=== PATIENT | female | born 1945 | race Caucasian/White ===

== ENCOUNTER 2017-08-07 12:02 | Emergency (ER) | payer MEDICARE, MEDICAID ==
[~2017-08-07] VITALS: Ht 157.5 cm; Wt 69.1 kg
[2017-08-07 12:03] VITALS: TEMP 98.4
[2017-08-07 12:53] LABS: BASO % 0.3 % (0.0-2.0); EOS % 0.2 % (0-4.0); GRAN # 3.2 (1.4-6.5); GRAN % 54.3 % (42.2-75.2); HEMATOCRIT 43.5 % (37.0-47.0); HEMOGLOBIN 14.6 g/dl (12.5-16.0); LYMPH # 1.9 (1.2-3.4); LYMPH % 32.9 % (20.0-51.0); MEAN CELL VOLUME 79 fl (80.0-100.0); MEAN CORPUSCULAR HEMOGLOBIN 27 pg (27.0-31.0); MEAN CORPUSCULAR HGB CONC 34 g/dl (33.0-37.0); MEAN PLATELET VOLUME 10.4 fl (7.4-10.4); MONO # 0.7 (0.1-0.6); MONO % 11.5 % (1.7-9.3); PLATELET COUNT 199 K/mm3 (130-400); RED BLOOD COUNT 5.49 M/mm3 (4.10-5.30); REDCELL DISTRIBUTION WIDTH-CV 14.6 % (11.5-14.5)
[2017-08-07 12:55] LABS: COLLECTION METHOD CLEAN CATCH
[2017-08-07 13:00] LABS: ALBUMIN 4.2 gm/dL (3.5-5.0); BILIRUBIN,TOTAL 0.6 mg/dL (0.0-1.0); CALCIUM 8.8 mg/dL (8.4-10.2); CREATININE, serum 1.37 mg/dL (0.52-1.25); POTASSIUM 3.2 mmol/L (3.4-5.0); TOTAL PROTEIN 7.1 gm/dL (6.4-8.2)
[2017-08-07] MEDS ORDERED: ULTRAM 50MG TAB50 MG PO (13:07)
[2017-08-07] MEDS ORDERED: LIPITOR20 MG PO (13:08)
[2017-08-07] MEDS ORDERED: PROTONIX 40MG T40 MG PO (13:08)
[2017-08-07] MEDS ORDERED: NAPROSYN500 MG PO (13:08)
[2017-08-07] MEDS ORDERED: CYMBALTA 60MG60 MG PO (13:09)
[2017-08-07] MEDS ORDERED: MINOXIDIL 10 PO (13:09)
[2017-08-07] MEDS ORDERED: NORVASC 10MG10 MG PO (13:10)
[2017-08-07] MEDS ORDERED: PLAVIX 75MG TAB75 MG PO (13:10)
[2017-08-07] MEDS ORDERED: BYSTOLIC10 MG PO (13:10)
[2017-08-07] MEDS ORDERED: CATAPRES0.2 MG PO (13:11)
[2017-08-07] MEDS ORDERED: NORCO 325 MG-51 TAB PO (13:11)
[2017-08-07] MEDS ORDERED: ATIVAN 1MG T1 MG/TAB PO ×2 (13:12→16:41)
[2017-08-07] MEDS ORDERED: GLUCOTROL XL2.5 MG PO (13:13)
[2017-08-07] MEDS ORDERED: COZAAR 50MG50 MG/TAB PO (13:13)
[2017-08-07 13:16] LABS: PH 5 (5-8); URINE APPEARANCE Clear; URINE BILIRUBIN Negative (NEGATIVE); URINE BLOOD Negative (NEGATIVE); URINE COLOR Yellow; URINE GLUCOSE Negative (NEGATIVE); URINE KETONE Negative (NEGATIVE); URINE LEUKOCYTE ESTERASE Negative (NEGATIVE); URINE NITRATE Negative (NEGATIVE); URINE PROTEIN(semi-quant) 1+ (NEGATIVE)
[2017-08-07 13:16] LABS: ACETAMINOPHEN < 10 ug/mL (10-30); ALCOHOL(ethanol),MEDICAL < 10 mg/dL; SALICYLATE < 1.0 mg/dL
[2017-08-07 13:24] LABS: MUCOUS Present /lpf; URINE RBC 0-2 /hpf
[2017-08-07 13:39] LABS: TSH w REFLEX 0.541 uIU/mL (0.465-4.680)
[2017-08-07 16:44] VITALS: BP 183/95; PULSE 66
== END 2017-08-07 17:08 | disposition home or self-care (01) ==
LOC: COL.ER 12:02
PROVIDERS: Emergency Medicine
DX: F43.22 Adjustment disorder with anxiety (principal); F32.9 Major depressive disorder, single episode, unspecified; I10 Essential (primary) hypertension; F17.210 Nicotine dependence, cigarettes, uncomplicated; Z86.73 Personal history of transient ischemic attack (TIA), and cerebral infarction without residual deficits; Z95.1 Presence of aortocoronary bypass graft; Z79.02 Long term (current) use of antithrombotics/antiplatelets; Z79.84 Long term (current) use of oral hypoglycemic drugs
CPT/HCPCS: J2060; J7030

== ENCOUNTER 2017-08-09 13:51 | Inpatient (IN) | payer MEDICARE, MEDICAID ==
[~2017-08-09] VITALS: Ht 157.5 cm; Wt 62.5 kg
[~2017-08-09 13:51] MED LIST: ATIVAN 1MG T1 MG/TAB PO; BYSTOLIC10 MG PO; CATAPRES0.2 MG PO; COZAAR 50MG50 MG/TAB PO; CYMBALTA 60MG60 MG PO; GLUCOTROL XL2.5 MG PO; LIPITOR20 MG PO; MINOXIDIL 10 PO; NAPROSYN500 MG PO; NORCO 325 MG-51 TAB PO; NORVASC 10MG10 MG PO; PLAVIX 75MG TAB75 MG PO; PROTONIX 40MG T40 MG PO; ULTRAM 50MG TAB50 MG PO
[2017-08-09 14:02] VITALS: BP 170/88; PULSE 53; TEMP 98.5
[2017-08-09] MEDS ORDERED: FLONASEALLERGY NS (14:03)
[2017-08-09 15:30] LABS: INR 1.1 (0.8-3.0); PROTHROMBIN TIME 12.2 SECONDS (9.7-12.8)
[2017-08-09 15:47] LABS: ALBUMIN 3.8 gm/dL (3.5-5.0); BILIRUBIN,TOTAL 0.5 mg/dL (0.0-1.0); CALCIUM 8.4 mg/dL (8.4-10.2); CREATININE, serum 1.03 mg/dL (0.52-1.25); POTASSIUM 3.3 mmol/L (3.4-5.0); TOTAL PROTEIN 6.6 gm/dL (6.4-8.2)
[2017-08-09 15:57] LABS: BASO % 0.4 % (0.0-2.0); EOS % 0.1 % (0-4.0); GRAN # 3.9 (1.4-6.5); GRAN % 56.2 % (42.2-75.2); HEMATOCRIT 41.1 % (37.0-47.0); HEMOGLOBIN 13.7 g/dl (12.5-16.0); LYMPH # 2.2 (1.2-3.4); LYMPH % 31.8 % (20.0-51.0); MEAN CELL VOLUME 81 fl (80.0-100.0); MEAN CORPUSCULAR HEMOGLOBIN 27 pg (27.0-31.0); MEAN CORPUSCULAR HGB CONC 33 g/dl (33.0-37.0); MEAN PLATELET VOLUME 10.7 fl (7.4-10.4); MONO # 0.7 (0.1-0.6); MONO % 10.1 % (1.7-9.3); PLATELET COUNT 250 K/mm3 (130-400); RED BLOOD COUNT 5.08 M/mm3 (4.10-5.30); REDCELL DISTRIBUTION WIDTH-CV 14.6 % (11.5-14.5)
[2017-08-09 16:00] LABS: MAGNESIUM 1.8 mg/dL (1.6-2.3); PHOSPHOROUS 3.9 mg/dL (2.5-4.5)
[2017-08-09 17:27] VITALS: BP 156/61; PULSE 67; TEMP 98.6
[2017-08-09 17:28] VITALS: BP 156/61; PULSE 57; TEMP 98.6
[2017-08-09 22:00] VITALS: BP 149/60; PULSE 62; TEMP 98.9
[2017-08-10] VITALS (14 sets, daily range): BP systolic 113–153; BP diastolic 57–75; PULSE 50–77; TEMP 96.4–98.8
[2017-08-10 07:01] LABS: ALBUMIN 3.4 gm/dL (3.5-5.0); BILIRUBIN,TOTAL 0.4 mg/dL (0.0-1.0); CALCIUM 8.3 mg/dL (8.4-10.2); CREATININE, serum 1.05 mg/dL (0.52-1.25); POTASSIUM 3.9 mmol/L (3.4-5.0); TOTAL PROTEIN 6.1 gm/dL (6.4-8.2)
[2017-08-11 01:27] VITALS: BP 131/54; PULSE 79; TEMP 98.5
[2017-08-11 04:53] VITALS: BP 154/63; PULSE 81; TEMP 97.5
[2017-08-11 06:59] LABS: HEMATOCRIT 38.9 % (37.0-47.0); HEMOGLOBIN 12.9 g/dl (12.5-16.0); MEAN CELL VOLUME 81 fl (80.0-100.0); MEAN CORPUSCULAR HEMOGLOBIN 27 pg (27.0-31.0); MEAN CORPUSCULAR HGB CONC 33 g/dl (33.0-37.0); PLATELET COUNT 217 K/mm3 (130-400); RED BLOOD COUNT 4.82 M/mm3 (4.10-5.30); REDCELL DISTRIBUTION WIDTH-CV 15.1 % (11.5-14.5)
[2017-08-11 07:18] LABS: ALBUMIN 3.5 gm/dL (3.5-5.0); BILIRUBIN,TOTAL 4.3 mg/dL (0.0-1.0); CREATININE, serum 1.29 mg/dL (0.52-1.25); POTASSIUM 3.4 mmol/L (3.4-5.0); TOTAL PROTEIN 6.4 gm/dL (6.4-8.2)
[2017-08-11 09:11] LABS: BAND 22 % (0-10); LYMPHOCYTE 13 % (20.0-51.0); NEUTROPHILS 64 % (42.0-75.2); PLATELET ESTIMATE NORMAL (NORMAL)
[2017-08-11 09:32] VITALS: BP 156/62; PULSE 77; TEMP 98
[2017-08-11 13:16] VITALS: BP 159/67; PULSE 80; TEMP 100.8
[2017-08-11 17:45] VITALS: BP 148/61; PULSE 66; TEMP 98.8
[2017-08-11 20:33] VITALS: BP 163/76; PULSE 64; TEMP 98.5
[2017-08-12] VITALS (13 sets, daily range): BP systolic 131–168; BP diastolic 57–72; PULSE 63–94; TEMP 98–101.4
[2017-08-12 06:32] LABS: HEMATOCRIT 37.7 % (37.0-47.0); HEMOGLOBIN 12.5 g/dl (12.5-16.0); MEAN CELL VOLUME 80 fl (80.0-100.0); MEAN CORPUSCULAR HEMOGLOBIN 27 pg (27.0-31.0); MEAN CORPUSCULAR HGB CONC 33 g/dl (33.0-37.0); MEAN PLATELET VOLUME 11.8 fl (7.4-10.4); PLATELET COUNT 200 K/mm3 (130-400); RED BLOOD COUNT 4.72 M/mm3 (4.10-5.30); REDCELL DISTRIBUTION WIDTH-CV 15.6 % (11.5-14.5)
[2017-08-12 06:56] LABS: ALBUMIN 2.8 gm/dL (3.5-5.0); BILIRUBIN,TOTAL 4.2 mg/dL (0.0-1.0); CALCIUM 7.4 mg/dL (8.4-10.2); CREATININE, serum 1.04 mg/dL (0.52-1.25); TOTAL PROTEIN 5.6 gm/dL (6.4-8.2)
[2017-08-12 06:59] LABS: POTASSIUM 2.9 mmol/L (3.4-5.0)
[2017-08-12 08:29] LABS: BAND 19 % (0-10); EOSINOPHIL 1 % (0-4); LYMPHOCYTE 7 % (20.0-51.0); METAMYELOCYTE 1 % (0-0); NEUTROPHILS 67 % (42.0-75.2); PLATELET ESTIMATE NORMAL (NORMAL)
[2017-08-13] VITALS (7 sets, daily range): BP systolic 118–139; BP diastolic 52–87; PULSE 52–60; TEMP 97–99.3
[2017-08-13 07:22] LABS: BASO % 0.2 % (0.0-2.0); GRAN # 9.7 (1.4-6.5); GRAN % 84.8 % (42.2-75.2); HEMATOCRIT 37.9 % (37.0-47.0); HEMOGLOBIN 12.5 g/dl (12.5-16.0); LYMPH # 0.8 (1.2-3.4); LYMPH % 6.9 % (20.0-51.0); MEAN CELL VOLUME 80 fl (80.0-100.0); MEAN CORPUSCULAR HEMOGLOBIN 26 pg (27.0-31.0); MEAN CORPUSCULAR HGB CONC 33 g/dl (33.0-37.0); MEAN PLATELET VOLUME 11.8 fl (7.4-10.4); MONO # 0.8 (0.1-0.6); MONO % 7.3 % (1.7-9.3); PLATELET COUNT 174 K/mm3 (130-400); RED BLOOD COUNT 4.73 M/mm3 (4.10-5.30); REDCELL DISTRIBUTION WIDTH-CV 15.9 % (11.5-14.5)
[2017-08-13 07:36] LABS: ALBUMIN 2.8 gm/dL (3.5-5.0); BILIRUBIN,TOTAL 3.4 mg/dL (0.0-1.0); CALCIUM 7.6 mg/dL (8.4-10.2); CREATININE, serum 1.06 mg/dL (0.52-1.25); POTASSIUM 3.9 mmol/L (3.4-5.0); TOTAL PROTEIN 5.8 gm/dL (6.4-8.2)
[2017-08-14 00:39] VITALS: BP 123/60; PULSE 56; TEMP 97.8
[2017-08-14 04:40] VITALS: BP 159/75; PULSE 82; TEMP 98.1
[2017-08-14 07:42] LABS: BASO % 0.2 % (0.0-2.0); GRAN # 9.4 (1.4-6.5); GRAN % 83.5 % (42.2-75.2); LYMPH % 8.6 % (20.0-51.0); MEAN CELL VOLUME 80 fl (80.0-100.0); MEAN CORPUSCULAR HGB CONC 34 g/dl (33.0-37.0); MEAN PLATELET VOLUME 12.5 fl (7.4-10.4); MONO # 0.8 (0.1-0.6); MONO % 6.7 % (1.7-9.3); PLATELET COUNT 173 K/mm3 (130-400); RED BLOOD COUNT 4.19 M/mm3 (4.10-5.30); REDCELL DISTRIBUTION WIDTH-CV 16.1 % (11.5-14.5)
[2017-08-14 07:45] LABS: HEMATOCRIT 33.3 % (37.0-47.0); HEMOGLOBIN 11.2 g/dl (12.5-16.0); MEAN CORPUSCULAR HEMOGLOBIN 27 pg (27.0-31.0)
[2017-08-14 07:51] LABS: ALBUMIN 2.7 gm/dL (3.5-5.0); BILIRUBIN,TOTAL 2.2 mg/dL (0.0-1.0); CALCIUM 7.7 mg/dL (8.4-10.2); CREATININE, serum 1.15 mg/dL (0.52-1.25); POTASSIUM 3.4 mmol/L (3.4-5.0); TOTAL PROTEIN 5.6 gm/dL (6.4-8.2)
[2017-08-14 10:42] VITALS: BP 154/69; PULSE 87; TEMP 98.3
[2017-08-14 12:33] VITALS: BP 148/61; PULSE 65
[2017-08-14 17:16] VITALS: BP 109/59; PULSE 59; TEMP 98.2
[2017-08-15 00:04] VITALS: BP 141/60; PULSE 47; TEMP 97.7
[2017-08-15 05:59] VITALS: BP 138/99; PULSE 53; TEMP 97.8
[2017-08-15 07:45] LABS: MEAN CELL VOLUME 79 fl (80.0-100.0); MEAN CORPUSCULAR HEMOGLOBIN 26 pg (27.0-31.0); MEAN CORPUSCULAR HGB CONC 34 g/dl (33.0-37.0); MEAN PLATELET VOLUME 12.4 fl (7.4-10.4); PLATELET COUNT 191 K/mm3 (130-400); RED BLOOD COUNT 4.55 M/mm3 (4.10-5.30)
[2017-08-15 07:52] LABS: ALBUMIN 3.1 gm/dL (3.5-5.0); BILIRUBIN,TOTAL 2.1 mg/dL (0.0-1.0); CALCIUM 7.9 mg/dL (8.4-10.2); CREATININE, serum 1.05 mg/dL (0.52-1.25); POTASSIUM 3.3 mmol/L (3.4-5.0); TOTAL PROTEIN 6.1 gm/dL (6.4-8.2)
[2017-08-15 08:17] LABS: HEMATOCRIT 35.7 % (37.0-47.0)
[2017-08-15 09:12] LABS: BAND 6 % (0-10); EOSINOPHIL 2 % (0-4); LYMPHOCYTE 18 % (20.0-51.0); NEUTROPHILS 69 % (42.0-75.2)
[2017-08-15 09:13] LABS: MICROCYTOSIS 1+
[2017-08-15 09:14] LABS: HYPOCHROMIA 1+
[2017-08-15 09:15] LABS: PLATELET ESTIMATE NORMAL (NORMAL)
[2017-08-15 13:50] VITALS: BP 132/60; PULSE 56; TEMP 97.6
[2017-08-15 17:18] VITALS: BP 119/69; PULSE 55; TEMP 97.7
[2017-08-15 22:25] VITALS: BP 142/50; PULSE 90; TEMP 98.2
[2017-08-16 01:26] VITALS: BP 154/66; PULSE 55; TEMP 97.6
[2017-08-16 05:08] VITALS: BP 153/72; PULSE 54; TEMP 97.3
[2017-08-16 07:34] LABS: ALBUMIN 3.1 gm/dL (3.5-5.0); BILIRUBIN,TOTAL 1.8 mg/dL (0.0-1.0); CALCIUM 7.8 mg/dL (8.4-10.2); CREATININE, serum 1.02 mg/dL (0.52-1.25); MAGNESIUM 1.8 mg/dL (1.6-2.3); POTASSIUM 3.2 mmol/L (3.4-5.0); TOTAL PROTEIN 6.1 gm/dL (6.4-8.2)
[2017-08-16] MEDS ORDERED: ABILIFY2 MG PO (08:25)
[2017-08-16] MEDS ORDERED: TYLENOL 325MG325 MG PO (08:28)
[2017-08-16] MEDS ORDERED: ULTRAM 50MG TAB50 MG PO (08:30)
[2017-08-16] MEDS ORDERED: K-TAB20 PO (09:02)
[2017-08-16] MEDS ORDERED: GOOD NEIGH1200 MG/15 PO (09:03)
[2017-08-16 09:05] VITALS: BP 117/63; PULSE 54; TEMP 98.2
[2017-08-16 10:46] VITALS: BP 117/63; PULSE 54; TEMP 98.2
== END 2017-08-16 12:48 | DRG 417 ==
LOC: SURG 13:51
PROVIDERS: Family Medicine; Nurse Practitioner Family; Physician Assistant; Surgery
PROC: 0FJB8ZZ Inspection of Hepatobiliary Duct, Via Natural or Artificial Opening Endoscopic (ICD-10-PCS; 2017-08-10)
PROC: 0FJD8ZZ Inspection of Pancreatic Duct, Via Natural or Artificial Opening Endoscopic (ICD-10-PCS; 2017-08-10)
PROC: BF031ZZ Plain Radiography of Gallbladder and Bile Ducts using Low Osmolar Contrast (ICD-10-PCS; 2017-08-12)
PROC: 0FT44ZZ Resection of Gallbladder, Percutaneous Endoscopic Approach (ICD-10-PCS; principal; 2017-08-12 10:00)
DX: K81.0 Acute cholecystitis (principal); K83.1 Obstruction of bile duct; N17.9 Acute kidney failure, unspecified; E44.0 Moderate protein-calorie malnutrition; F05 Delirium due to known physiological condition; R73.03 Prediabetes; E87.6 Hypokalemia; K83.8 Other specified diseases of biliary tract; I10 Essential (primary) hypertension; I25.10 Atherosclerotic heart disease of native coronary artery without angina pectoris; Z95.1 Presence of aortocoronary bypass graft; F17.210 Nicotine dependence, cigarettes, uncomplicated; Z95.5 Presence of coronary angioplasty implant and graft; M79.7 Fibromyalgia; R44.1 Visual hallucinations; T43.595A Adverse effect of other antipsychotics and neuroleptics, initial encounter; K82.8 Other specified diseases of gallbladder
CPT/HCPCS: 99223-AI; 99232-AI; 99233-AI; 99239; C1769; J1100; J1170; J1630; J1650; J2060; J2270; J2405; J2543; J2704; J2710; J3010; J3480; J7030; J7070; J7120; Q9967

== ENCOUNTER → 2018-04-24 | Outpatient (CLI) | payer MEDICARE, MEDICAID ==
[~2018-04-24] MED LIST changes: +ABILIFY2 MG PO; +FLONASEALLERGY NS; +GOOD NEIGH1200 MG/15 PO; +K-TAB20 PO; +TYLENOL 325MG325 MG PO
== END ==
LOC: MC.RAD 12:46
DX: Z12.31 Encounter for screening mammogram for malignant neoplasm of breast (principal)

== ENCOUNTER → 2019-05-15 | Outpatient (CLI) | payer MEDICARE, MEDICAID | LOC: MC.RAD 09:15 | DX: Z12.31 Encounter for screening mammogram for malignant neoplasm of breast (principal) ==